=== PATIENT | female | born 1995 | race African-American/Black ===

== ENCOUNTER 2017-08-25 09:08 | Emergency (ER) | payer OTHER ==
[~2017-08-25] VITALS: Ht 162.6 cm; Wt 54.4 kg
[~2017-08-25 09:08] MED LIST: CEPHALEXIN 500500 M1 PO; DIFLUCAN150 MG PO; MACROBID 100 M100 M1 PO; NOHOMEMEDICATIONS
[2017-08-25 09:14] VITALS: BP 143/67
== END 2017-08-25 09:40 | disposition home or self-care (01) ==
LOC: M.ERS 09:08
DX: Z71.1 Person with feared health complaint in whom no diagnosis is made (principal)